=== PATIENT | male | born 1940 | race Asian ===

== ENCOUNTER 2018-01-18 22:53 | Emergency (ER) | payer OTHER ==
[2018-01-19] MEDS: ALBUTEROL 0.083% (NEB) 2.5 MG/3 ML AMP INH (00:34)
[2018-01-19] MEDS: IPRATROPIUM (NEB) 0.5 MG/2.5 ML AMP INH (00:34)
[2018-01-19 00:39] LABS: WHITE BLOOD COUNT 8.7 10^3/ul (4.8-10.8)
[2018-01-19 00:39] LABS: ADD MAN DIFF? NO; BASOPHIL # 0.1 10^3/ul (0.0-0.1); BASOPHILS % 0.6 % (0.0-2.0); EOSINOPHILS # 0.4 10^3/ul (0.0-0.5); EOSINOPHILS % 4.6 % (0.0-7.0); HEMATOCRIT 42.7 % (42.0-52.0); HEMOGLOBIN 14.2 g/dl (14.0-18.0); LYMPHOCYTES # 1.7 10^3/ul (0.8-2.9); LYMPHOCYTES % 19.1 % (15.0-51.0); MEAN CORPUSCULAR HEMOGLOBIN 29.3 pg (29.0-33.0); MEAN CORPUSCULAR HGB CONC 33.3 g/dl (32.0-37.0); MEAN PLATELET VOLUME 8.6 fl (7.4-10.4); MONOCYTE # 0.6 10^3/ul (0.3-0.9); MONOCYTES % 7.2 % (0.0-11.0); NEUTROPHIL # 5.9 10^3/ul (1.6-7.5); NEUTROPHILS % 68.2 % (39.0-77.0); PLATELET COUNT 278 10^3/UL (140-415); RED BLOOD COUNT 4.85 10^6/ul (4.70-6.10); RED CELL DISTRIBUTION WIDTH 12.8 % (11.5-14.5)
[2018-01-19 00:46] LABS: D-DIMER 262.82 ng/ml (<460)
[2018-01-19 00:48] LABS: ANION GAP 10 (5-13); BLOOD UREA NITROGEN 17 mg/dl (7-20); CALCIUM 9.5 mg/dl (8.4-10.2); CARBON DIOXIDE 29 mmol/L (21-31); CHLORIDE 102 mmol/L (97-110); GLUCOSE 119 mg/dl (70-220); POTASSIUM 4.7 mmol/L (3.5-5.1); SODIUM 141 mmol/L (135-144)
[2018-01-19 00:59] LABS: TROPONIN-I < 0.012 ng/ml (0.000-0.120)
[2018-01-19 01:11] LABS: MODE NASAL CANNULA; MetHgb Venous 0.4 %; Sample Type Blood venous; Site VENOUS LINE; Venous COHb 0.4 %; Venous Fraction OxyHgb 61.6 %; Venous Oxygen Sat 62.1 mmHG (55.0-75.0); Venous Total Hemglobin 14.1 g/dl
== END 2018-01-19 01:51 | disposition home or self-care (01) ==
LOC: E/R 22:53
DX: J98.01 Acute bronchospasm (principal); J44.9 Chronic obstructive pulmonary disease, unspecified; Z85.818 Personal history of malignant neoplasm of other sites of lip, oral cavity, and pharynx; Z85.22 Personal history of malignant neoplasm of nasal cavities, middle ear, and accessory sinuses; Z87.891 Personal history of nicotine dependence
CPT/HCPCS: 36415; 71045; 80048; 82803; 84484; 85025; 85378; 93005; 94664; 99285-25

== ENCOUNTER 2018-01-20 09:21 | Observation (INO) | payer OTHER ==
[2018-01-20] MEDS: ALBUTEROL 0.5% (NEB) 2.5 MG/0.5 ML AMP INH (10:25)
[2018-01-20] MEDS: IPRATROPIUM (NEB) 0.5 MG/2.5 ML AMP INH (10:25)
[2018-01-20] MEDS: METHYLPREDNISOLONE 125 MG INJ IV ×2 (10:28→13:23)
[2018-01-20] MEDS: SODIUM CHLORIDE 0.9% 1L BAG IV* (10:28)
[2018-01-20] MEDS: CEFEPIME 2GM/50 ML (PMX) 50 ML IVPB (10:28)
[2018-01-20 10:41] LABS: AADO2 Arterial 41.1 mmHg (7.0-24.0); Allen Test ACCEPTAB; Arterial Base Excess -0.3 mmol/L (-3.0-3); Arterial Blood Gas Oxygen Sat 97.3 mmHG (95.0-100.0); Arterial COHb 0.5 % (0.0-3.0); Arterial Fraction of Oxyhgb 96.5 % (93.0-99.0); Arterial HCO3 25.4 mmol/L (22.0-26.0); Arterial MetHb 0.3 % (0.0-1.5); Arterial Total Hemglobin 15.4 g/dl (12.0-18.0); Arterial pCO2 45.3 mmhg (35-45); MODE NASAL CANNULA; Site Right Radial
[2018-01-20 10:52] LABS: ADD MAN DIFF? NO
[2018-01-20 11:03] LABS: WHITE BLOOD COUNT 9.6 10^3/ul (4.8-10.8)
[2018-01-20 11:03] LABS: BASOPHIL # 0.1 10^3/ul (0.0-0.1); BASOPHILS % 0.7 % (0.0-2.0); EOSINOPHILS # 0.7 10^3/ul (0.0-0.5); EOSINOPHILS % 6.8 % (0.0-7.0); HEMATOCRIT 44.2 % (42.0-52.0); HEMOGLOBIN 14.9 g/dl (14.0-18.0); LYMPHOCYTES # 1.7 10^3/ul (0.8-2.9); LYMPHOCYTES % 17.2 % (15.0-51.0); MEAN CORPUSCULAR HEMOGLOBIN 29.6 pg (29.0-33.0); MEAN CORPUSCULAR HGB CONC 33.7 g/dl (32.0-37.0); MEAN CORPUSCULAR VOLUME 87.9 fl (82.0-101.0); MONOCYTE # 0.7 10^3/ul (0.3-0.9); MONOCYTES % 6.8 % (0.0-11.0); NEUTROPHIL # 6.5 10^3/ul (1.6-7.5); NEUTROPHILS % 68.2 % (39.0-77.0); PLATELET COUNT 281 10^3/UL (140-415); RED BLOOD COUNT 5.03 10^6/ul (4.70-6.10); RED CELL DISTRIBUTION WIDTH 12.8 % (11.5-14.5)
[2018-01-20 11:17] LABS: ALANINE AMINOTRANSFERASE 22 IU/L (13-69); ALBUMIN 4.7 g/dl (3.3-4.9); ALKALINE PHOSPHATASE 55 IU/L (42-121); AMYLASE 205 U/L (11-123); ANION GAP 10 (5-13); ASPARTATE AMINO TRANSFERASE 20 IU/L (15-46); BILIRUBIN,INDIRECT 0.6 mg/dl (0-1.1); BILIRUBIN,TOTAL 0.6 mg/dl (0.2-1.3); BLOOD UREA NITROGEN 13 mg/dl (7-20); CARBON DIOXIDE 27 mmol/L (21-31); CHLORIDE 105 mmol/L (97-110); GLUCOSE 139 mg/dl (70-220); LIPASE 1162 U/L (23-300); SODIUM 142 mmol/L (135-144); TOTAL PROTEIN 8.3 g/dl (6.1-8.1)
[2018-01-20] MEDS: VANCOMYCIN 1 GM (PMX) 250 ML IVPB (11:18)
[2018-01-20 11:22] LABS: INR 0.91; PROTIME 12.3 Sec (11.9-14.9)
[2018-01-20 11:28] LABS: TROPONIN-I < 0.012 ng/ml (0.000-0.120)
[2018-01-20 11:33] LABS: D-DIMER 395.77 ng/ml (<460)
[2018-01-20 11:35] LABS: POTASSIUM 3.8 mmol/L (3.5-5.1)
[2018-01-20] MEDS ORDERED: ONDANSETRON 4 MG INJ IV ×2 (13:00→14:00)
[2018-01-20] MEDS ORDERED: ACETAMINOPHEN 325 MG TAB PO ×2 (13:00→14:00)
[2018-01-20] MEDS ORDERED: NACL 0.9% 3 ML SYG IV (14:00)
[2018-01-20] MEDS ORDERED: DOCUSATE SODIUM 100 MG CAP PO (14:00)
[2018-01-20] MEDS ORDERED: MAGNESIUM HYDROXIDE 30ML CUP PO (14:00)
[2018-01-20] MEDS ORDERED: ALBUTEROL/IPRATROPIUM (NEB) 3 ML AMP HHN (14:00)
[2018-01-20] MEDS ORDERED: BISACODYL 10 MG SUPP PR (14:00)
[2018-01-20] MEDS: ALBUTEROL/IPRATROPIUM (NEB) 3 ML AMP HHN ×2 (14:13→20:15)
[2018-01-20 15:39] LABS: LACTIC ACID 2.3 mmol/L (0.5-2.0)
[2018-01-20] MEDS: METHYLPREDNISOLONE 40 MG INJ IV ×2 (17:13→23:36)
[2018-01-20] MEDS: FLUTICASONE/VILANTEROL 200-25 INH DEVICE INH (17:59)
[2018-01-20] MEDS: TAMSULOSIN (SR) 0.4 MG CAP PO (22:29)
[2018-01-20] MEDS: ATORVASTATIN 40 MG TAB PO (22:29)
[2018-01-21] MEDS: METHYLPREDNISOLONE 40 MG INJ IV ×2 (05:44→14:34)
[2018-01-21] MEDS: LEVOFLOXACIN 500 MG TAB PO (05:44)
[2018-01-21] MEDS: PANTOPRAZOLE (EC) 40 MG TAB PO (05:44)
[2018-01-21 07:11] LABS: ADD MAN DIFF? NO
[2018-01-21 07:13] LABS: BASOPHILS % 0.1 % (0.0-2.0); HEMATOCRIT 42.2 % (42.0-52.0); HEMOGLOBIN 14.1 g/dl (14.0-18.0); LYMPHOCYTES # 1.4 10^3/ul (0.8-2.9); LYMPHOCYTES % 8.7 % (15.0-51.0); MEAN CORPUSCULAR HEMOGLOBIN 29.7 pg (29.0-33.0); MEAN CORPUSCULAR HGB CONC 33.4 g/dl (32.0-37.0); MEAN PLATELET VOLUME 8.7 fl (7.4-10.4); MONOCYTE # 0.4 10^3/ul (0.3-0.9); MONOCYTES % 2.3 % (0.0-11.0); NEUTROPHIL # 14.4 10^3/ul (1.6-7.5); NEUTROPHILS % 88.4 % (39.0-77.0); PLATELET COUNT 285 10^3/UL (140-415); RED BLOOD COUNT 4.74 10^6/ul (4.70-6.10)
[2018-01-21 07:13] LABS: WHITE BLOOD COUNT 16.3 10^3/ul (4.8-10.8)
[2018-01-21 08:00] LABS: AMYLASE 56 U/L (11-123)
[2018-01-21 08:00] LABS: LIPASE 142 U/L (23-300)
[2018-01-21] MEDS: ALBUTEROL/IPRATROPIUM (NEB) 3 ML AMP HHN (08:00)
[2018-01-21 08:01] LABS: ALANINE AMINOTRANSFERASE 20 IU/L (13-69); ALBUMIN 4.4 g/dl (3.3-4.9); ALBUMIN/GLOBULIN RATIO 1.62; ALKALINE PHOSPHATASE 42 IU/L (42-121); ANION GAP 12 (5-13); ASPARTATE AMINO TRANSFERASE 22 IU/L (15-46); BILIRUBIN,INDIRECT 0.3 mg/dl (0-1.1); BILIRUBIN,TOTAL 0.3 mg/dl (0.2-1.3); BLOOD UREA NITROGEN 15 mg/dl (7-20); CALCIUM 8.7 mg/dl (8.4-10.2); CARBON DIOXIDE 26 mmol/L (21-31); CHLORIDE 104 mmol/L (97-110); CREATININE 0.69 mg/dl (0.61-1.24); GLUCOSE 129 mg/dl (70-220); MAGNESIUM 2.2 mg/dl (1.7-2.5); PHOSPHORUS 3.4 mg/dl (2.5-4.9); POTASSIUM 3.8 mmol/L (3.5-5.1); SODIUM 142 mmol/L (135-144); TOTAL PROTEIN 7.1 g/dl (6.1-8.1)
[2018-01-21 08:09] LABS: CHOLESTEROL 158 mg/dl (100-200)
[2018-01-21 08:09] LABS: CHOL/HDL RATIO 2.6 RATIO; HDL CHOLESTEROL 59 mg/dl (31-75); LDL CHOLESTEROL,CALCULATED 86 mg/dl; TRIGLYCERIDES 66 mg/dl (0-149)
[2018-01-21] MEDS ORDERED: ALBUTEROL/IPRATROPIUM (NEB) 3 ML AMP HHN ×2 (09:30→16:00)
[2018-01-21] MEDS: FLUTICASONE/VILANTEROL 200-25 INH DEVICE INH (09:32)
[2018-01-21] MEDS: ENOXAPARIN 40 MG/0.4 ML SYG SC (09:33)
[2018-01-21 10:22] LABS: LACTIC ACID 3.8 mmol/L (0.5-2.0)
== END 2018-01-21 14:50 | disposition home health service (06) ==
LOC: E/R 09:21 → PP2 12:44
PROVIDERS: Internal Medicine
DX: J44.1 Chronic obstructive pulmonary disease with (acute) exacerbation (principal); E78.5 Hyperlipidemia, unspecified; Z87.891 Personal history of nicotine dependence; J43.9 Emphysema, unspecified; R13.10 Dysphagia, unspecified; N40.0 Benign prostatic hyperplasia without lower urinary tract symptoms; R74.8 Abnormal levels of other serum enzymes
CPT/HCPCS: 36415; 36600; 70490; 71045; 76700; 78582; 80053; 80061; 82150; 82803; 83605; 83690; 83735; 84100; 84484; 85025; 85378; 85610; 85730; 87040; 93005; 94640; 94644; 94664; 96374; 96375; 99285-25; G0378

== ENCOUNTER 2018-05-08 09:31 | Observation (INO) | payer OTHER ==
[2018-05-08 11:30] LABS: ADD MAN DIFF? NO
[2018-05-08 11:33] LABS: WHITE BLOOD COUNT 8.2 10^3/ul (4.8-10.8)
[2018-05-08 11:33] LABS: BASOPHILS % 0.5 % (0.0-2.0); EOSINOPHILS # 0.7 10^3/ul (0.0-0.5); EOSINOPHILS % 8.3 % (0.0-7.0); HEMATOCRIT 47.4 % (42.0-52.0); HEMOGLOBIN 15.3 g/dl (14.0-18.0); LYMPHOCYTES # 1.5 10^3/ul (0.8-2.9); LYMPHOCYTES % 18.8 % (15.0-51.0); MEAN CORPUSCULAR HEMOGLOBIN 28.4 pg (29.0-33.0); MEAN CORPUSCULAR HGB CONC 32.3 g/dl (32.0-37.0); MEAN CORPUSCULAR VOLUME 87.9 fl (82.0-101.0); MEAN PLATELET VOLUME 8.5 fl (7.4-10.4); MONOCYTE # 0.7 10^3/ul (0.3-0.9); MONOCYTES % 8.5 % (0.0-11.0); NEUTROPHIL # 5.2 10^3/ul (1.6-7.5); NEUTROPHILS % 63.3 % (39.0-77.0); PLATELET COUNT 283 10^3/UL (140-415); RED BLOOD COUNT 5.39 10^6/ul (4.70-6.10); RED CELL DISTRIBUTION WIDTH 13.5 % (11.5-14.5)
[2018-05-08 11:35] LABS: ADD UMIC NO; UR ASCORBIC ACID NEGATIVE (NEGATIVE); UR BACTERIA FEW /HPF (NONE SEEN); UR BILIRUBIN (Dip) NEGATIVE (NEGATIVE); UR BLOOD (Dip) NEGATIVE (NEGATIVE); UR CLARITY SLIGHTLY CLOUDY (CLEAR); UR COLOR YELLOW (YELLOW); UR GLUCOSE (Dip) NEGATIVE (NEGATIVE); UR KETONES (Dip) NEGATIVE (NEGATIVE); UR LEUKOCYTE ESTERASE (Dip) NEGATIVE Leu/ul (NEGATIVE); UR MUCUS MODERATE /HPF (NONE SEEN); UR NITRITE (Dip) NEGATIVE (NEGATIVE); UR RBC 1 /HPF (0-5); UR SPECIFIC GRAVITY (Dip) 1.023 (1.003-1.030); UR TOTAL PROTEIN (Dip) NEGATIVE (NEGATIVE); UR UROBILINOGEN (Dip) NEGATIVE (NEGATIVE); UR WBC 0 /HPF (0-5)
[2018-05-08 11:51] LABS: ALANINE AMINOTRANSFERASE 29 IU/L (13-69); ALBUMIN 4.2 g/dl (3.3-4.9); ALBUMIN/GLOBULIN RATIO 1.16; ALKALINE PHOSPHATASE 54 IU/L (42-121); ANION GAP 6 (5-13); ASPARTATE AMINO TRANSFERASE 29 IU/L (15-46); BILIRUBIN,INDIRECT 0.3 mg/dl (0-1.1); BILIRUBIN,TOTAL 0.3 mg/dl (0.2-1.3); BLOOD UREA NITROGEN 15 mg/dl (7-20); CALCIUM 9.3 mg/dl (8.4-10.2); CARBON DIOXIDE 33 mmol/L (21-31); CHLORIDE 102 mmol/L (97-110); CREATININE 0.75 mg/dl (0.61-1.24); GLUCOSE 103 mg/dl (70-220); LIPASE 187 U/L (23-300); POTASSIUM 4.2 mmol/L (3.5-5.1); SODIUM 141 mmol/L (135-144); TOTAL PROTEIN 7.8 g/dl (6.1-8.1)
[2018-05-08] MEDS: SOD CHLORIDE 0.9% 1,000 ML IV ×2 (12:10→13:32)
[2018-05-08] MEDS ORDERED: ACETAMINOPHEN 325 MG TAB PO (14:00)
[2018-05-08] MEDS ORDERED: ONDANSETRON 4 MG INJ IV (14:00)
[2018-05-08] MEDS ORDERED: NACL 0.9% 3 ML SYG IV (15:00)
[2018-05-08] MEDS ORDERED: FAMOTIDINE 20 MG INJ IV (15:00)
[2018-05-08] MEDS: D5W-0.45 NACL + KCL 20 MEQ 1,000 ML IV (16:17)
[2018-05-08] MEDS: PANTOPRAZOLE 40 MG INJ IV (18:14)
[2018-05-09] MEDS: D5W-0.45 NACL + KCL 20 MEQ 1,000 ML IV ×3 (02:59→13:00)
[2018-05-09] MEDS: PANTOPRAZOLE 40 MG INJ IV ×2 (05:55→17:00)
[2018-05-09 06:41] LABS: HEMOGLOBIN A1C 5.8 % (0-5.9)
[2018-05-09 14:28] LABS: INR 0.96; PROTIME 12.9 Sec (11.9-14.9)
[2018-05-09] MEDS ORDERED: PROPOFOL 40 ML (17:19)
[2018-05-09] MEDS ORDERED: LIDOCAINE 2% (SDV) 5 ML INJ (17:19)
[2018-05-09] MEDS ORDERED: CEFAZOLIN 1 GM/50 ML (PMX) 50 ML IVPB (17:22)
[2018-05-09] MEDS ORDERED: DIPHENHYDRAMINE 50 MG INJ IV (18:00)
[2018-05-09] MEDS ORDERED: MEPERIDINE 25 MG INJ IV (18:00)
[2018-05-09] MEDS ORDERED: FENTAnyl 50 MCG/ML VIAL IV (18:00)
[2018-05-09] MEDS ORDERED: ONDANSETRON 4 MG INJ IV (18:00)
[2018-05-09] MEDS: HYDROmorphONE 0.5 MG/0.5 ML SYG IV (21:03)
[2018-05-10] MEDS: D5W-0.45 NACL + KCL 20 MEQ 1,000 ML IV ×2 (01:20→11:40)
[2018-05-10] MEDS: PANTOPRAZOLE 40 MG INJ IV ×2 (06:00→17:36)
[2018-05-10] MEDS: HYDROmorphONE 0.5 MG/0.5 ML SYG IV ×2 (06:02→15:55)
== END 2018-05-10 21:42 | disposition home health service (06) ==
LOC: E/R 09:31 → PP2 13:34
DX: R13.10 Dysphagia, unspecified (principal); R63.3 Feeding difficulties; K21.0 Gastro-esophageal reflux disease with esophagitis; I10 Essential (primary) hypertension; E78.5 Hyperlipidemia, unspecified; J44.9 Chronic obstructive pulmonary disease, unspecified; N40.0 Benign prostatic hyperplasia without lower urinary tract symptoms; F17.200 Nicotine dependence, unspecified, uncomplicated; I73.9 Peripheral vascular disease, unspecified; R63.4 Abnormal weight loss; Z68.1 Body mass index [BMI] 19.9 or less, adult
CPT/HCPCS: 36415; 70490; 80053; 81001; 81003; 83036; 83690; 85025; 85610; 92526; 92610; 99217; 99285-25